=== PATIENT | female | born 1945 | race Caucasian/White ===

== ENCOUNTER 2019-05-22 17:36 | Emergency (ER) | payer OTHER, MEDICARE ==
[~2019-05-22] VITALS: Ht 152.4 cm; Wt 49.9 kg
--- OUTSIDE RECORDS SUMMARY | 2019-05-22 17:39 | XMS REPORT ---
Author Author Iain Salas Organization [employer] Address Unknown Phone Unavailable Care Team Providers Care Resident Physician Name Role Phone Iain Salas CP Unavailable Allergies, Adverse Reactions, Alerts Substance Reaction Event Type Latex rash Non Drug Allergy PNC anaphylaxis Non Drug Allergy Problems Problem Type Condition Code Onset Dates Condition Status Problem Age-related osteoporosis without current pathological fracture M81.0 Active Problem Chronic atrial fibrillation I48.2 Active Problem Other idiopathic scoliosis, thoracolumbar region M41.25 Active Problem Dependence on supplemental oxygen Z99.81 Active Assessment Anxiety F41.9 Active Problem Anxiety F41.9 Active Assessment Chronic pain syndrome G89.4 Active Problem Chronic pain syndrome G89.4 Active Problem HTN (hypertension), benign I10 Active Problem 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 Active Problem Acquired hypothyroidism E03.9 Active Problem Pure hypercholesterolemia E78.00 Active Assessment Age-related osteoporosis without current pathological fracture M81.0 Active Assessment Other idiopathic scoliosis, thoracolumbar region M41.25 Active Assessment Acquired hypothyroidism E03.9 Active Assessment Dependence on supplemental oxygen Z99.81 Active Assessment HTN (hypertension), benign I10 Active Assessment Annual physical exam Z00.00 Active Assessment Pure hypercholesterolemia E78.00 Active Assessment Chronic atrial fibrillation I48.2 Active Problem Other chronic pain G89.29 Active Medications Medication Code System Code Instructions Start Date End Date Status Dosage Diltiazem HCl ER Coated Beads [facility] 87586277864 240 MG Orally Once a day Active TAKE ONE CAPSULE BY MOUTH EVERY DAY Simvastatin [facility] 20818846200 20 MG oral daily Active TAKE 1 TABLET BY MOUTH EVERYDAY AT BEDTIME Lasix ND 70990114088 20 mg Orally Once a day Active 1 tablet Symbicort [facility] 84294229031 160-4.5 MCG/ACT Inhalation Twice a day Active 2 puffs Tizanidine HCl ND 26230826973 4 MG Orally Once a day Active 1 tablet as needed Gabapentin ND 82669053885 300 MG Orally Three times a day Active 2 capsule Digoxin [facility] 46512678625 125 MCG Orally Once a day Active 1 tablet Hydrocodone-Acetaminophen [facility] 95623952042 5-325 MG Orally every 6 hrs Active 1 tablet as needed Fluoxetine HCl [facility] 71266064429 20 MG Orally Once a day Active 1 capsule Medrol [facility] 18065963929 4 MG Orally as directed Jul 09, 2018 Active as directed Tramadol HCl [facility] 47431743233 50 MG Orally every 6 hrs Active 1 tablet as needed Diltiazem CD [facility] 60133366943 240 MG Orally at night time Active 1 capsule Albuterol Sulfate [facility] 98251761354 (2.5 MG/3ML) 0.083% Inhalation Three times a day Active 3 ml as needed Alendronate Sodium [facility] 03343767721 70 MG orally once a week May 12, 2019 Active TAKE 1 TABLET BY MOUTH EVERY MONDAY Levothyroxine Sodium [facility] 71035207264 50 MCG orally daily Active TAKE 1 TABLET BY MOUTH EVERY DAY AT 630AM Celecoxib [facility] 83949845131 100 MG Orally Twice a day Active 1 capsule with food Xopenex HFA [facility] 55744356423 45 MCG/ACT Inhalation twice a day (bid) Active 2 puffs Fluoxetine HCl [facility] 81433514496 10 MG Orally Once a day Active TAKE 1 CAPSULE BY MOUTH EVERY DAY Anoro Ellipta [facility] 09687480220 62.5-25 MCG/INH Inhalation Once a day Active 1 puff Clonidine HCl [facility] 00600244433 0.1 MG Orally Once a day Active 1 tablet at bedtime Vital Signs Date/Time: Nov 13, 2018 BMI 22.55 Index Weight 115.5 lbs Height 60 in Temperature 98.2 F Blood Pressure Diastolic 77 mm Hg Blood Pressure Systolic 138 mm Hg Results Name Result Date Reference Range Unit Abnormality Flag T4, FREE ----T4, FREE 1.1 20181113 0.8-1.8 ng/dL N TSH ----TSH 3.47 20181113 0.40-4.50 mIU/L N COMPREHENSIVE METABOLIC PANEL ----ALBUMIN/GLOBULIN RATIO 1.6 20181113 1.0-2.5 (calc) N ----GLOBULIN 2.6 20181113 1.9-3.7 g/dL (calc) N ----ALKALINE PHOSPHATASE 79 20181113 33-130 U/L N ----BILIRUBIN, TOTAL 0.4 20181113 0.2-1.2 mg/dL N ----CHLORIDE 99 20181113 98-110 mmol/L N ----ALT 15 20181113 6-29 U/L N ----POTASSIUM 4.0 20181113 3.5-5.3 mmol/L N ----AST 23 20181113 10-35 U/L N ----SODIUM 140 20181113 135-146 mmol/L N ----BUN/CREATININE RATIO NOT APPLICABLE 20181113 6-22 (calc) ----eGFR 104 20181113 > OR=60 mL/min/1.73m2 N ----CALCIUM 9.1 20181113 8.6-10.4 mg/dL N ----CARBON DIOXIDE 28 20181113 20-32 mmol/L N ----ALBUMIN 4.2 20181113 3.6-5.1 g/dL N ----PROTEIN, TOTAL 6.8 20181113 6.1-8.1 g/dL N ----GLUCOSE 81 20181113 65-99 mg/dL N ----UREA NITROGEN (BUN) 14 20181113 7-25 mg/dL N ----CREATININE 0.63 20181113 0.60-0.93 mg/dL N ----eGFR NON-AFR. CYPRIOT 90 20181113 > OR=60 mL/min/1.73m2 N DIGOXIN ----DIGOXIN <0.5 20181113 0.8-2.0 mcg/L L LIPID PANEL ----NON HDL CHOLESTEROL 93 20181113 <130 mg/dL (calc) N ----CHOL/HDLC RATIO 1.9 20181113 <5.0 (calc) N ----LDL-CHOLESTEROL 76 20181113 mg/dL (calc) N ----TRIGLYCERIDES 89 20181113 <150 mg/dL N ----HDL CHOLESTEROL 98 20181113 >50 mg/dL N ----CHOLESTEROL, TOTAL 191 20181113 <200 mg/dL N CBC (INCLUDES DIFF/PLT) ----HEMOGLOBIN 12.5 20181113 11.7-15.5 g/dL N ----RED BLOOD CELL COUNT 4.54 [id number] 3.80-5.10 Million/uL N ----MCV 86.3 41179519 80.0-100.0 fL N ----HEMATOCRIT 39.2 80546881 35.0-45.0 % N ----MCHC 31.9 84772807 32.0-36.0 g/dL L ----MCH 27.5 79383601 27.0-33.0 pg N ----PLATELET COUNT 419 [id number] 140-400 Thousand/uL H ----RDW 13.2 11597450 11.0-15.0 % N ----MPV 10.5 30357279 7.5-12.5 fL N ----ABSOLUTE LYMPHOCYTES 1844 08097718 850-3900 cells/uL N ----ABSOLUTE NEUTROPHILS 5733 10039191 3559-9734 cells/uL N ----ABSOLUTE EOSINOPHILS 148 11205262 15-500 cells/uL N ----ABSOLUTE MONOCYTES 896 70730445 200-950 cells/uL N ----NEUTROPHILS 65.9 43433445 % N ----WHITE BLOOD CELL COUNT 8.7 54427720 3.8-10.8 Thousand/uL N ----BASOPHILS 0.9 71727085 % N ----ABSOLUTE BASOPHILS 78 32128256 0-200 cells/uL N ----EOSINOPHILS 1.7 50114517 % N ----LYMPHOCYTES 21.2 59621768 % N ----MONOCYTES 10.3 15304829 % N Summary Purpose eClinicalWorks Submission
--- OUTSIDE RECORDS SUMMARY | 2019-05-22 17:39 | XMS REPORT ---
Author Author Iain Salas Organization [employer] Address Unknown Phone Unavailable Care Team Providers Care Drywall Metal Stud Worker Name Role Phone Iain Salas Unavailable Allergies, Adverse Reactions, Alerts Substance Reaction Event Type Latex rash Non Drug Allergy PNC anaphylaxis Non Drug Allergy Problems Problem Type Condition Code Onset Dates Condition Status Problem Pure hypercholesterolemia E78.00 Active Problem Other idiopathic scoliosis, thoracolumbar region M41.25 Active Problem Age-related osteoporosis without current pathological fracture M81.0 Active Problem Acquired hypothyroidism E03.9 Active Problem Chronic pain syndrome G89.4 Active Problem COPD exacerbation J44.1 Active Problem Other chronic pain G89.29 Active Problem Chronic atrial fibrillation I48.2 Active Problem Dependence on supplemental oxygen Z99.81 Active Problem Anxiety F41.9 Active Assessment COPD exacerbation J44.1 Active Problem 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 42815017651 160-4.5 MCG/ACT Inhalation Twice a day Active 2 puffs Diltiazem CD [facility] 08661407817 240 MG Orally at night time Active 1 capsule Hydrocodone-Acetaminophen [facility] 39288998846 5-325 MG Orally every 6 hrs Active 1 tablet as needed Tramadol HCl ND 66566335320 50 MG Orally every 6 hrs Active 1 tablet as needed Digoxin ND 55479828235 125 MCG Orally Once a day Active [address] [facility] 17632146758 4 MG Orally as directed December 30, 2018 Active as directed Simvastatin [facility] 74262371520 20 MG oral daily Active TAKE 1 TABLET BY MOUTH EVERYDAY AT BEDTIME Anoro Ellipta [facility] 19521479557 62.5-25 MCG/INH Inhalation Once a day Active [address] [facility] 97823456640 300 MG Orally Three times a day Active 2 capsule Alendronate Sodium [facility] 99052434277 70 MG orally once a week May 12, 2019 Inactive TAKE 1 TABLET BY MOUTH EVERY MONDAY Xopenex HFA [facility] 88876655279 45 MCG/ACT Inhalation twice a day (bid) Active [address] [facility] 16823282898 60 MG/ML Subcutaneous q 6 months Active as directed Oseltamivir Phosphate [facility] 81297018670 75 MG Orally Twice a day December 30, 2018 Active [address] [facility] 85527277255 20 mg Orally Once a day Active 1 tablet Fluoxetine HCl [facility] 94987943137 10 MG Orally Once a day Active TAKE 1 CAPSULE BY MOUTH EVERY DAY Clonidine HCl [facility] 14029814741 0.1 MG Orally Once a day Active 1 tablet at bedtime Albuterol Sulfate [facility] 34942371309 (2.5 MG/3ML) 0.083% Inhalation Three times a day Active 3 ml as needed Levothyroxine Sodium [facility] 01218284637 50 MCG orally daily Active TAKE 1 TABLET BY MOUTH EVERY DAY AT 630AM Medrol [facility] 22650741729 4 MG Orally as directed Jul 09, 2018 Active as directed Tizanidine HCl [facility] 50835015278 4 MG Orally Once a day Active 1 tablet as needed Celecoxib [facility] 88521292123 100 MG Orally Twice a day Active 1 capsule with food Diltiazem HCl ER Coated Beads [facility] 11188704416 240 MG Orally Once a day Active TAKE ONE CAPSULE BY MOUTH EVERY DAY Fluoxetine HCl [facility] 10469965333 20 MG Orally Once a day Active 1 capsule Vital Signs Date/Time: December 31, 2018 BMI 21.87 Index Weight 112 lbs Height 60 in Temperature 98.3 F Blood Pressure Diastolic 76 mm Hg Blood Pressure Systolic 153 mm Hg Results No Known Results Summary Purpose [employer]ClinicalWorks Submission
--- OUTSIDE RECORDS SUMMARY | 2019-05-22 17:39 | XMS REPORT ---
Author Author Iain Salas Organization [employer] Address Unknown Phone Unavailable Care Team Providers Care Marketing Instructor Name Role Phone Iain Salas CP Unavailable Allergies No Known Allergies Problems Problem Type Condition Code Onset Dates Condition Status Problem Age-related osteoporosis without current pathological fracture M81.0 Active Problem Chronic atrial fibrillation I48.2 Active Problem Other idiopathic scoliosis, thoracolumbar region M41.25 Active Problem Other chronic pain G89.29 Active Problem Dependence on supplemental oxygen Z99.81 Active Problem Anxiety F41.9 Active Problem Chronic pain syndrome G89.4 Active Problem HTN (hypertension), benign I10 Active Problem 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
--- OUTSIDE RECORDS SUMMARY | 2019-05-22 17:39 | XMS REPORT | Continuity of Care Document ---
Author Author [employer] [facility] [employer] Address Unknown Phone Unavailable Care Team Providers Care Manager Food Safety Name Role Phone [employer] Unavailable Unavailable Problems Problem Status Onset Date Classification Date Reported Comments Source Age-related osteoporosis without current pathological fracture Active Problem 01/09/2019 Enayet Ravam Chronic atrial fibrillation Active Problem 01/09/2019 Enayet Ravam Other idiopathic scoliosis, thoracolumbar region Active Problem 01/09/2019 Enmireilleet Ravam Other chronic pain Active Problem 01/09/2019 Endestiny Salgadovam Dependence on supplemental oxygen Active Problem 01/09/2019 Enayet Ravam Anxiety Active Problem [facility]09[facility] Chronic pain syndrome Active Problem 01/09/2019 [facility] HTN (hypertension), benign Active Problem 01/09/2019 [facility] COPD (chronic obstructive pulmonary disease) with chronic bronchitis Active Problem 01/09/2019 [facility] Acquired hypothyroidism Active Problem 01/09/2019 [facility] Pure hypercholesterolemia Active Problem 01/09/2019 [facility] COPD exacerbation Active Problem 01/09/2019 Bakari Merlos Medications Medication Details Route Status Patient Instructions Ordering Provider Order Date Source Alendronate Sodium TAKE 1 TABLET BY MOUTH EVERY MONDAY orally Active 70 MG orally once a week Maritza 05/12/2019 [facility] PredniSONE 1 tablet Orally Active 2.5 MG Orally Once a day Maritza 01/08/2019 [facility] Levaquin 1 tablet Orally Active 500 MG Orally Once a day Maritza 01/01/2019 Bakari Valadezm Medrol as directed Orally Active 4 MG Orally as directed Maritza 12/30/2018 Bakari Valadez Oseltamivir Phosphate 1 capsule Orally Active 75 MG Orally Twice a day [facility] 12/30/2018 Bakari Salgadovam Medrol as directed Orally Active 4 MG Orally as directed [facility] 07/09/2018 Bakari Merlos Diltiazem HCl ER Coated Beads TAKE ONE CAPSULE BY MOUTH EVERY DAY Orally Active 240 MG Orally Once a day [facility] Simvastatin TAKE 1 TABLET BY MOUTH EVERYDAY AT BEDTIME oral Active 20 MG oral daily [facility] Lasix 1 tablet Orally Active 20 mg Orally Once a day [facility] Symbicort 2 puffs Inhalation Active 160-4.5 MCG/ACT Inhalation Twice a day [facility] 1 tablet as needed Orally Active 4 MG Orally Once a day [facility] Gab[facility] 2 capsule Orally Active 300 MG Orally Three times a day [facility] Digoxin 1 tablet Orally Active 125 MCG Orally Once a day [facility] Hydrocodone-Acetaminophen 1 tablet as needed Orally Active 5- 325 MG Orally every 6 hrs [facility] Fluoxetine HCl 1 capsule Orally Active 20 MG Orally Once a day [facility] Tramadol HCl 1 tablet as needed Orally Active 50 MG Orally every 6 hrs [facility] Diltiazem CD 1 capsule Orally Active 240 MG Orally at night time [facility] Albuterol Sulfate 3 ml as needed Inhalation Active (2.5 MG/3ML) 0.083% Inhalation Three times a day [facility] Levothyroxine Sodium TAKE 1 TABLET BY MOUTH EVERY DAY AT 630AM orally Active 50 MCG orally daily [facility] Celecoxib 1 capsule with food Orally Active 100 MG Orally Twice a day [facility] Xopenex HFA 2 puffs Inhalation Active 45 MCG/ACT Inhalation twice a day (bid) [facility] Fluoxetine HCl TAKE 1 CAPSULE BY MOUTH EVERY DAY Orally Active 10 MG Orally Once a day [facility] Anoro Ellipta 1 puff Inhalation Active 62.5-25 MCG/INH Inhalation Once a day [facility] Clonidine HCl 1 tablet at bedtime Orally Active 0.1 MG Orally Once a day [facility] Prolia as directed Subcutaneous Active 60 MG/ML Subcutaneous q 6 months [facility] Allergies, Adverse Reactions, Alerts Substance Category Reaction Severity Reaction type Status Date Reported Comments Source Latex Adverse Reaction rash Adverse Reaction Active 12/31/2018 Enayet Rahim PNC Adverse Reaction anaphylaxis Adverse Reaction Active 12/31/2018 Enayet Rahim Immunizations No Data Provided for This Section Results No Data Provided for This Section Pathology Reports No Data Provided for This Section Diagnostic Reports No Data Provided for This Section Consultation Notes No Data Provided for This Section Discharge Summaries No Data Provided for This Section History and Physicals No Data Provided for This Section Vital Signs Vital Sign Value Date Comments Source Weight 112 12/31/2018 Enayet Rahim Height 60 12/31/2018 Enayet Rahim Temperature Oral (F) 98.3 F 12/31/2018 Enayet Rahim Diastolic (mm Hg) 76 12/31/2018 Enayet Rahim Systolic (mm Hg) 153 12/31/2018 Enayet Rahim Weight 115.5 11/13/2018 Enayet Rahim Height 60 11/13/2018 Enayet Rahim Temperature Oral (F) 98.2 F 11/13/2018 Enayet Rahim Diastolic (mm Hg) 77 11/13/2018 Enayet Rahim Systolic (mm Hg) 138 11/13/2018 Enayet Rahim Encounters No Data Provided for This Section Procedures No Data Provided for This Section Assessment and Plan No Data Provided for This Section Plan of Care No Data Provided for This Section Social History No Data Provided for This Section Family History No Data Provided for This Section Advance Directives No Data Provided for This Section Functional Status No Data Provided for This Section
--- OUTSIDE RECORDS SUMMARY | 2019-05-22 17:39 | XMS REPORT ---
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 89080184131 20 mg Orally Once a day Active 1 tablet Results No Known Results Summary Purpose eClinicalWorks Submission
--- OUTSIDE RECORDS SUMMARY | 2019-05-22 17:39 | XMS REPORT ---
Author Author Iain Salas Organization [employer] Address Unknown Phone Unavailable Care Team Providers Care Beef Pluck Trimmer Name Role Phone Iain Salas CP Unavailable [...] Status Dosage Diltiazem HCl ER Coated Beads [facility] 20364621827 240 MG Orally Once a day Active TAKE ONE CAPSULE BY MOUTH EVERY DAY Results No Known Results Summary Purpose eClinicalWorks Submission
--- OUTSIDE RECORDS SUMMARY | 2019-05-22 17:39 | XMS REPORT ---
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 Active Problem HTN (hypertension), benign I10 Active Problem Acquired hypothyroidism E03.9 Active Problem Chronic pain syndrome G89.4 Active Problem COPD exacerbation J44.1 Active Problem Other chronic pain G89.29 Active Problem Chronic atrial fibrillation I48.2 Active Problem Dependence on supplemental oxygen Z99.81 Active Problem Anxiety F41.9 Active Medications Medication Code System Code Instructions Start Date End Date Status Dosage Levaquin [facility] 71442264385 500 MG Orally Once a day January 01, 2019 January 11, 2019 Active 1 tablet Results No Known Results Summary Purpose [employer]ClinicalWorks Submission
--- OUTSIDE RECORDS SUMMARY | 2019-05-22 17:39 | XMS REPORT ---
Author Author Iain Salas Organization [employer] Address Unknown Phone Unavailable Care Team Providers Care Fire Fighter [place] Name Role Phone Iain Salas CP Unavailable [...] Instructions Start Date End Date Status Dosage PredniSONE [facility] 74863956400 2.5 MG Orally Once a day January 08, 2019 March 09, 2019 Active 1 tablet Results No Known Results Summary Purpose [employer]ClinicalWorks Submission
--- OUTSIDE RECORDS SUMMARY | 2019-05-22 17:39 | XMS REPORT ---
Author Author Iain Salas Organization [employer] Address Unknown Phone Unavailable Care Team Providers Care Typewriter Ribbon Winder Name Role Phone Iain Salas CP Unavailable [...] Instructions Start Date End Date Status Dosage Fluoxetine HCl [facility] 40703796425 20 MG Orally Once a day Active 1 capsule Results No Known Results Summary Purpose eClinicalWorks Submission
[2019-05-22] MEDS ORDERED: TRAMADOL HCL 50 MG TAB ONE (20:41)
[2019-05-22] MEDS ORDERED: TETANUS/DIPHTHERIA TOX ADULT 0.5 ML SYR IM ONE (21:00)
--- NOTE | 2019-05-22 21:12 | NUR ---
WOUND TO LEFT LEG CLEANED, DRESSED WITH STERI-STRIPS AND TELFA PER LEONID SANTACRUZ. TOLERATED WELL. AWAKE ALERT SK IN W/ D RESP NONLAB. NAD NOTED.
[2019-05-24] MEDS ORDERED: TRAMADOL HCL 50 MG TAB PO ONE (06:00)
== END 2019-05-22 21:13 | disposition home or self-care (01) ==
LOC: ER 17:36
DX: S81.812A Laceration without foreign body, left lower leg, initial encounter (principal); W45.8XXA Other foreign body or object entering through skin, initial encounter; Y92.008 Other place in unspecified non-institutional (private) residence as the place of occurrence of the external cause; I10 Essential (primary) hypertension; J44.9 Chronic obstructive pulmonary disease, unspecified; E78.5 Hyperlipidemia, unspecified; M41.9 Scoliosis, unspecified
CPT/HCPCS: 90471; 90714; 99283